=== PATIENT | female | born 1990 | race Caucasian/White ===

== ENCOUNTER 2018-03-05 08:31 | Observation (INO) | payer OTHER ==
[~2018-03-05] VITALS: Ht 160 cm; Wt 83.9 kg
[2018-03-05 09:35] LABS: CLARITY,URINE HAZY (CLEAR); COLOR,URINE YELLOW (YELLOW)
[2018-03-05 09:37] LABS: BILIRUBIN,URINE NEGATIVE (NEGATIVE); KETONES,URINE TRACE (NEGATIVE); LEUKOCYTE ESTERASE ,URINE NEGATIVE (NEGATIVE); NITRITE,URINE NEGATIVE (NEGATIVE); PREGNANCY TEST, URINE NEGATIVE (NEGATIVE); PROTEIN,URINE DIPSTICK TRACE (NEGATIVE); URINE UROBILINOGEN 0.2 mg/dL (0.2 - 1)
--- NOTE | 2018-03-05 10:01 | Diagnostic Imaging Report ---
EXAMINATION: Head CT HISTORY: Syncope, fall, trauma, head and neck pain COMPARISON: None. TECHNIQUE: Multidetector axial images were obtained without contrast from the foramen magnum to the vertex . The images were reconstructed using brain and bone algorithms. Thin section brain images were reformatted into coronal and sagittal planes. Image quality: Motion/streaking artifact limits the evaluation of the skull base and posterior cranial fossa. Dose modulation, iterative reconstruction, and/or weight based adjustment of the mA/kV was utilized to reduce the radiation dose to as low as reasonably achievable. FINDINGS: Parenchyma: 1. No abnormal densities. 2. No mass or hemorrhage. No CT evidence of acute territorial vascular insult. Extra-axial spaces:No abnormal density. No extra-axial fluid collections Brain volume: Normal for age. Ventricles: No hydrocephalus or displacement. Arteries: No density suggestive of thrombus. Dural sinuses: No abnormal density. Extra-axial spaces: No abnormal density. Foramen magnum: No mass, Chiari malformation, or basilar invagination. Sella: No obvious mass. Paranasal/mastoid sinuses: Imaged portions unremarkable. Skull/Scalp: No lytic or blastic lesions. No fractures. Left frontal soft tissues swelling/hematoma without underlying fracture. IMPRESSION: Small left frontal scalp swelling/hematoma without underlying fractures. No intracranial abnormalities, particularly no post traumatic intracranial hemorrhage. Signed by: Dr. Liz Reddy M.D. on 03/05/2018 9:57 AM
[2018-03-05 10:02] LABS: AMORPHOUS SEDIMENT,URINE FEW (FEW); BACTERIA,URINE FEW /HPF; EPITHELIAL CELLS,URINE MODERATE /LPF
[2018-03-05 10:03] LABS: MUCUS,URINE FEW (RARE)
--- NOTE | 2018-03-05 10:04 | Diagnostic Imaging Report ---
EXAMINATION: CT of the cervical spine HISTORY: Syncope and fall, trauma, head and neck pain COMPARISON: None available TECHNIQUE: Multidetector helical axial images were obtained without contrast from the foramen magnum to T1. The images were reconstructed using bone and soft tissue algorithms and were viewed in axial, sagittal and coronal planes. Dose modulation, iterative reconstruction, and/or weight based adjustment of the mA/kV was utilized to reduce the radiation dose to as low as reasonably achievable. FINDINGS: Alignment: Reversal of the cervical lordosis, likely positional. Soft tissues: Normal Vertebrae: Normal height and density. No acute fracture, infection or neoplasm Degenerative changes: None IMPRESSION: No acute cervical spine postraumatic abnormalities. Note: Acute postraumatic spinal cord, vascular or ligamentous injuries cannot adequately be assessed by CT. Signed by: Dr. Liz Reddy M.D. on 03/05/2018 10:00 AM
[2018-03-05 10:17] LABS: BASOPHILS % 0.3 % (0.0-1.0); EOSINOPHILS # (AUTO) 0.1 (0.0-0.4); HEMATOCRIT 39.4 % (34.2-44.1); HEMOGLOBIN 12.8 g/dL (12.0-16.0); LYMPHOCYTES # (AUTO) 1.7 (1.0-3.2); LYMPHOCYTES % 12.9 % (18.0-39.1); MEAN CORPUSCULAR HEMOGLOBIN 27.4 pg (28-32); MEAN CORPUSCULAR HGB CONC 32.5 g/dL (31-35); MEAN CORPUSCULAR VOLUME 84.4 fL (81-99); MONOCYTES # (AUTO) 0.8 (0.2-0.8); MONOCYTES % 6.2 % (4.4-11.3); NEUTROPHILS # (AUTO) 10.6 (2.1-6.9); NEUTROPHILS % 79.1 % (38.7-80.0); PLATELET COUNT 269 x10e3/uL (140-360); RED BLOOD COUNT 4.67 x10e6/uL (3.6-5.1); RED CELL DISTRIBUTION WIDTH 12.9 % (11.7-14.4)
[2018-03-05 10:36] LABS: ALANINE AMINOTRANSFERASE 14 IU/L (0-55); ALBUMIN 3.5 g/dL (3.5-5.0); ALKALINE PHOSPHATASE 49 IU/L (40-150); BLOOD UREA NITROGEN 17 mg/dL (7-26); BUN/CREATININE RATIO 22 (6-25); CALCIUM 9.3 mg/dL (8.4-10.2); CARBON DIOXIDE 24 mmol/L (22-29); CHLORIDE 101 mmol/L (98-107); CREATINE KINASE 41 IU/L (29-168); CREATININE, SERUM 0.77 mg/dL (0.57-1.11); EST GLOMERULAR FILTRATION RATE > 60 ML/MIN (60-); GLUCOSE 114 mg/dL (74-118); SODIUM 136 mmol/L (136-145)
[2018-03-05] MEDS ORDERED: ONDANSETRON HCL INJ 2 MG/ML VIAL IV PRN (11:45)
[2018-03-05] MEDS ORDERED: MORPHINE SULFATE 2 MG/ML SYR IV PRN (11:45)
[2018-03-05] MEDS ORDERED: MORPHINE SULFATE INJ 4 MG/ML INJ IV PRN (12:00)
[2018-03-05] MEDS: SODIUM CHLORIDE 0.9% 1000ML 1,000 ML IV SCH ×3 (12:34→22:30)
[2018-03-05 14:22] VITALS: BP 122/74
[2018-03-05 14:26] VITALS: BP 122/74
[2018-03-05 15:11] VITALS: BP 122/74
[2018-03-05 19:20] VITALS: BP 121/71
[2018-03-05 22:34] VITALS: BP 121/71
[2018-03-05 23:59] VITALS: BP 112/67
[2018-03-06 05:30] LABS: BASOPHILS % 0.4 % (0.0-1.0); EOSINOPHILS # (AUTO) 0.2 (0.0-0.4); HEMATOCRIT 34.7 % (34.2-44.1); HEMOGLOBIN 11.1 g/dL (12.0-16.0); LYMPHOCYTES # (AUTO) 3.2 (1.0-3.2); LYMPHOCYTES % 30.7 % (18.0-39.1); MEAN CORPUSCULAR HEMOGLOBIN 27.3 pg (28-32); MEAN CORPUSCULAR VOLUME 85.3 fL (81-99); MONOCYTES # (AUTO) 0.8 (0.2-0.8); NEUTROPHILS # (AUTO) 6.2 (2.1-6.9); NEUTROPHILS % 58.6 % (38.7-80.0); PLATELET COUNT 241 x10e3/uL (140-360); RED BLOOD COUNT 4.07 x10e6/uL (3.6-5.1)
[2018-03-06 05:51] LABS: ANION GAP 13.4 mmol/L (8-16); BLOOD UREA NITROGEN 14 mg/dL (7-26); BUN/CREATININE RATIO 20 (6-25); CALCIUM 8.3 mg/dL (8.4-10.2); CARBON DIOXIDE 22 mmol/L (22-29); CHLORIDE 110 mmol/L (98-107); CREATININE, SERUM 0.69 mg/dL (0.57-1.11); EST GLOMERULAR FILTRATION RATE > 60 ML/MIN (60-); GLUCOSE 110 mg/dL (74-118); POTASSIUM 4.4 mmol/L (3.5-5.1); SODIUM 141 mmol/L (136-145)
[2018-03-06 06:00] VITALS: BP 107/57
[2018-03-06] MEDS: SODIUM CHLORIDE 0.9% 1000ML 1,000 ML IV SCH (07:05)
[2018-03-06 07:32] VITALS: BP 108/65
[2018-03-06 08:16] VITALS: BP 108/65
--- NOTE | 2018-03-06 16:39 | Consultation ---
DATE OF CONSULTATION: March 06, 2018 NEUROLOGY CONSULTATION HISTORY OF PRESENT ILLNESS: Ms. Ellis is a 27-year-old right hand dominant woman without significant past medical history, admitted to [facility] on March 05, 2018, with a possible seizure. On the day of admission, the patient was standing in her bathroom, readying herself for work, when she experienced the abrupt onset of nausea, dizziness which is further described as a lightheaded sensation, cold sweats, and vomiting times 1. Ms. Ellis then abruptly lost consciousness, falling towards her left side and hitting the left side of her head and body on the tile floor. The period of unconsciousness lasted only a few seconds. When the patient regained consciousness, she was oriented to person, place, time, and loosely to situation. However, she was confused as to how she came to be lying on the bathroom floor. The patient's helped her rise from the bathroom floor and sat her down on the bed in the master bedroom. He then went to the kitchen for some ice for a cold compress. While in the kitchen, the patient's heard Ms. Ellis moaning. He immediately returned to the bedroom where he found the patient lying on the bed with her arms, legs and neck extended and her eyes rolled back in her head. There was no tongue biting, no foaming saliva, no bladder or bowel incontinence. This activity lasted for approximately 5 seconds. When the patient regained consciousness, she was immediately oriented to person, place, time, and, once again, loosely to situation. Ms. Ellis was brought to the emergency center at [facility] for further evaluation of her symptoms. In the emergency center, the patient was afebrile with normal vital signs. Her neurological examination was documented as being nonfocal. A CT of the brain without contrast was performed and did not show evidence of recent large territorial ischemia or hemorrhage. Ms. Ellis was admitted to [facility] under observation status for further evaluation and treatment. The patient does report multiple prior syncopal events. She does not report a history of febrile seizures. There is no known family history of seizure disorders. The patient does not report prior head trauma. She does not report prior meningitis or encephalitis. REVIEW OF SYSTEMS: Nasal congestion, rhinorrhea, productive cough, nausea, vomiting, dizziness which is further described as lightheadedness, headache, and syncope. Otherwise the 12 point review of systems is negative. PAST MEDICAL HISTORY: Cardiac murmur, multiple syncopal events. PAST SURGICAL HISTORY: [place] teeth extracted. PAST HOSPITALIZATIONS: Pneumonia. FAMILY MEDICAL HISTORY: The patient's paternal grandparents are . Their medical histories are unknown. The patient's maternal grandparents are . Ms. Ellis's maternal grandfather is from lung cancer. Her maternal grandmother is from breast cancer. The patient does not know whether or not her father is alive or and does not know his past medical history. The patient's mother is alive. She has hypertension and fibromyalgia. She has a prior history of breast cancer as well. Ms. Ellis has 2 sisters, both of whom are alive. One sister has multiple sclerosis. The other sister has hypertension. The patient has no biological children. SOCIAL HISTORY: Ms. Ellis is . She works as a middle school inhalation therapy teacher. The patient does not report current or prior tobacco, alcohol, or recreational drug use. HOME MEDICATIONS: Oral contraceptive pill. ALLERGIES: NO KNOWN DRUG ALLERGIES. NO KNOWN FOOD ALLERGIES. NO KNOWN ALLERGIES TO LATEX. NO KNOWN ALLERGIES TO IODINE OR OTHER CONTRAST MATERIALS. PHYSICAL EXAMINATION: VITAL SIGNS: Height 63 inches, weight 185 pounds. BMI 32.8 kg per meter squared. Blood pressure 108/65 mmHg. Pulse 76 beats per minute. Respiratory rate 18 breaths per minute. Oxygen saturation 98% on room air. GENERAL: The patient is awake and alert. Does not appear distressed. Obese. HEENT: Bruising over the left eye. Pupils are equal, round, and reactive to light. Moist mucous membranes. NECK: Supple. No appreciable thyromegaly. No appreciable carotid bruits. CARDIOVASCULAR: S1, S2, regular rate and rhythm. No murmurs, rubs, or gallops. RESPIRATORY: Clear to auscultation bilaterally. No wheezes rhonchi or rales. EXTREMITIES: The skin is warm and dry. No clubbing, cyanosis, or edema. The posterior tibial and dorsalis pedis pulses are 2+ and symmetric. SKIN: No rashes or lesions. NEUROLOGIC: Memory/Attention: The patient is awake and alert, oriented to person, place, time, and situation. Cranial Nerves: Cranial nerve 1--Not tested. Cranial nerve 2, 3, 4 and 6--Pupils are equal and round, react briskly to light (4 mm to 2 mm). Extraocular movements intact. No nystagmus. Cranial nerve 5--Sensation to light touch and pinprick is intact in the bilateral V1 through V3 distributions. Strength of the temporalis and masseter muscles is within normal limits. Cranial nerve 7--The face is symmetric as are all facial movements. Strength is within normal limits. Cranial nerve 8--Hearing is intact to finger rub bilaterally. Cranial nerve 9, 10--The soft palate elevates equally and symmetrically. Cranial nerve 11--Normal strength of the bilateral sternocleidomastoid and trapezius muscles. Cranial nerve 12--The tongue protrudes midline and moves symmetrically from side to side. Strength: Bulk is normal. Strength is 5/5 in the bilateral deltoids, biceps, triceps, wrist flexors and extensors, finger flexors and extensors, intrinsic hand muscles, hip flexors, knee flexors and extensors, ankle dorsiflexion and plantarflexion, and intrinsic foot muscles. Tone is normal. DTRs: Deep tendon reflexes are 2+ and symmetric at the triceps, biceps, brachioradialis, patellas, and Achilles. Plantar responses are flexor bilaterally. Sensation: Sensation is intact to light touch and pinprick in both arms and both legs. Cerebellar: [id number] and heel-campo movements are intact without dysmetria or other impairment. Gait: Deferred. Speech: Spontaneous speech is normal without appreciable dysarthria or aphasia. Repetition is intact. Involuntary Movements: None. Pronator Drift: None. LABORATORY DATA: A basic metabolic panel is within normal limits with the exception of a mildly low calcium level of 8.3. Liver function tests drawn on March 05, 2018, are within normal limits. Cardiac enzymes are negative times 1. The CBC with differential and platelets reveals a white blood cell count of 10.51 with 58.6% neutrophils, 30.7% lymphocytes, 8.0% monocytes, 2.0% eosinophils, and 0.4% basophils. The hemoglobin and hematocrit are 11.1 and 34.7, respectively. The platelet count is 241. A urinalysis was unremarkable. DIAGNOSTIC STUDIES: Electrocardiogram 03/05/2018: Sinus bradycardia at [address] of the brain without contrast 03/05/2018: On my review, there is no evidence of recent large territorial ischemia, hemorrhage, mass, or mass effect. Cerebral volumes are appropriate for age. There are no findings suggestive of mild chronic small vessel ischemic disease. There is a small left frontal scalp hematoma without underlying fracture. CT of the cervical spine without contrast 03/05/2018: On my review, there do not appear to be any acute posttraumatic abnormalities to the cervical spine. ASSESSMENT AND PLAN: Ms. Ellis is a 27-year-old right hand dominant woman with past medical history significant for multiple prior syncopal events, admitted to [facility] on March 05, 2018, status post syncopal events with questionable seizure versus convulsive syncope. At present, the patient's neurological examination is nonfocal. Her laboratory data and other diagnostic studies have been reviewed and are documented above. In my opinion, it is more likely the recent event experienced by the patient was convulsive syncope rather than a generalized tonic clonic seizure. Nevertheless, there is nothing in either the patient's medical history, neurological examination, or diagnostic studies suggestive of a propensity towards seizures. Therefore, it is highly unlikely Ms. Ellis would experience another seizure in the future. Further evaluation is not recommended from Neurology. Ms. Ellis may be discharged to home. Thank you for this consultation. Time spent: 70 minutes. Job#: [id number]
== END 2018-03-06 12:06 | disposition home or self-care (01) ==
LOC: ER 08:31 → ERHOLD 11:54 → IMCU 13:55
DX: R55 Syncope and collapse (principal)
CPT/HCPCS: 36415 ×2; 70450; 72125; 80048; 80053; 81001; 81025; 82550; 82553; 84484; 85025 ×2; 93005; 96361; 99284; G0378 ×2; J7030 ×2